=== PATIENT | male | born 1985 | race Caucasian/White ===

== ENCOUNTER → 2017-03-13 | Outpatient (CLI) | payer BC ==
[2017-03-13 09:53] LABS: CREATININE 1.5 mg/dL (0.7-1.3); GFR 54.6; MAGNESIUM 2.2 mg/dL (1.8-2.4); POTASSIUM 3.3 mmol/L (3.5-5.1)
[2017-03-13 10:15] LABS: BILIRUBIN,URINE NEG (NEG); CLARITY,URINE CLEAR; COLOR,URINE YELLOW; GLUCOSE,URINE NEG (NEG)
[2017-03-13 10:16] LABS: BACTERIA,URINE 0 /HPF (0-FEW); NITRITE,URINE NEG (NEG); RBC,URINE 0 /HPF (0-2); SQUAMOUS EPITHELIAL CELL,UR FEW /LPF; UROBILINOGEN,URINE 0.2 mg/dL (0.2 mg/dL); WBC,URINE 0 /HPF (0-4)
== END | disposition home or self-care (01) ==
LOC: LAB 09:05
PROVIDERS: ATTEND Internal Medicine Nephrology
DX: N17.8 Other acute kidney failure (principal); E26.81 Bartter's syndrome; E86.0 Dehydration; Z68.36 Body mass index [BMI] 36.0-36.9, adult
CPT/HCPCS: 36415; 80048; 81001; 83735

== ENCOUNTER → 2017-04-15 | Outpatient (CLI) | payer BC ==
--- NOTE | 2017-04-15 11:14 | RAD ---
Renal ultrasound 04/15/2017 Clinical history: Acute renal failure. History of Bartter syndrome. Technique: A real-time ultrasound examination of both kidneys and the urinary bladder was performed. Multiple images were obtained. Findings: Comparison is made to the patient's CT scan of the abdomen and pelvis dated 12/20/2012. Both kidneys are within normal limits in size. The right kidney measures 10.8 cm in length. The left kidney measures 12.1 cm in length. Thinning of the cortex of both kidneys is again seen. No focal abnormality of either kidney is noted. There is no evidence of hydronephrosis. The urinary bladder is distended with urine. No abnormality of the urinary bladder is seen. Impression: Thinning of the cortex of both kidneys is seen. Otherwise negative study.
== END | disposition home or self-care (01) ==
LOC: US 07:44
PROVIDERS: ATTEND Internal Medicine Nephrology
DX: N17.9 Acute kidney failure, unspecified (principal); E26.81 Bartter's syndrome
CPT/HCPCS: 76770

== ENCOUNTER → 2017-04-17 | Outpatient (CLI) | payer BC ==
[2017-04-17 10:57] LABS: CALCIUM 7.5 mg/dL (8.5-10.1); CREATININE 1.4 mg/dL (0.7-1.3); GFR 59.1; MAGNESIUM 2.1 mg/dL (1.8-2.4); POTASSIUM 3.4 mmol/L (3.5-5.1)
[2017-04-17 10:58] LABS: BACTERIA,URINE 0 /HPF (0-FEW); BILIRUBIN,URINE NEG (NEG); CLARITY,URINE CLEAR; COLOR,URINE STRAW; GLUCOSE,URINE NEG (NEG); NITRITE,URINE NEG (NEG); RBC,URINE RARE /HPF (0-2); SQUAMOUS EPITHELIAL CELL,UR OCC /LPF; UROBILINOGEN,URINE 0.2 mg/dL (0.2 mg/dL); WBC,URINE 0 /HPF (0-4)
== END | disposition home or self-care (01) ==
LOC: LAB 10:10
PROVIDERS: ATTEND Internal Medicine Nephrology
DX: E26.81 Bartter's syndrome (principal); N17.8 Other acute kidney failure; E86.0 Dehydration; Z68.36 Body mass index [BMI] 36.0-36.9, adult
CPT/HCPCS: 36415; 80048; 81001; 83735

== ENCOUNTER → 2017-05-14 | Outpatient (CLI) | payer BC | END | disposition home or self-care (01) | LOC: LAB 10:30 | PROVIDERS: ATTEND Nurse Practitioner Family | DX: N17.8 Other acute kidney failure (principal); E26.81 Bartter's syndrome; E87.6 Hypokalemia; E83.51 Hypocalcemia; Z68.35 Body mass index [BMI] 35.0-35.9, adult | CPT/HCPCS: 36415; 82306; 82310 ==

== ENCOUNTER → 2017-10-14 | Outpatient (CLI) | payer BC ==
[2017-10-14 11:31] LABS: BASO # 0.1 x10^3/uL (0.0-0.2); BASO % 2 % (0-3); EOS # 0.1 x10^3/uL (0.0-0.7); EOS % 2 % (0-3); HEMATOCRIT 51.1 % (39.0-53.0); HEMOGLOBIN 17.9 g/dL (13.0-17.5); LYMPH # 2.8 x10^3/uL (1.0-4.8); LYMPH % 42 % (24-48); MEAN CORPUSCULAR HEMOGLOBIN 31 pg (25-35); MEAN CORPUSCULAR HGB CONC 35 g/dL (31-37); MEAN CORPUSCULAR VOLUME 88 fL (79-100); MONO # 0.5 x10^3/uL (0.0-1.1); MONO % 8 % (0-9); NEUT # 3.1 x10^3uL (1.8-7.7); NEUT % 46 % (31-73); PLATELET COUNT 245 x10^3/uL (140-400); RED BLOOD COUNT 5.78 x10^6/uL (4.30-5.70); RED CELL DISTRIBUTION WIDTH 13.5 % (11.5-14.5); WHITE BLOOD COUNT 6.7 x10^3/uL (4.0-11.0)
[2017-10-14 11:37] LABS: CALCIUM 8.2 mg/dL (8.5-10.1); CREATININE 1.5 mg/dL (0.7-1.3); GFR 54.6; MAGNESIUM 2.2 mg/dL (1.8-2.4)
[2017-10-14 11:46] LABS: POTASSIUM 3.9 mmol/L (3.5-5.1)
[2017-10-16 12:08] LABS: CALCIUM PTH 8.5 mg/dL (8.7-10.2); CREATININE PTH 1.44 mg/dL (0.76-1.27); PTH INTACT 155 pg/mL (15-65)
== END | disposition home or self-care (01) ==
LOC: LAB 10:14
PROVIDERS: ATTEND Nurse Practitioner Family
DX: E26.81 Bartter's syndrome (principal); E87.6 Hypokalemia; N17.8 Other acute kidney failure; E83.51 Hypocalcemia; Z68.35 Body mass index [BMI] 35.0-35.9, adult
CPT/HCPCS: 36415; 80069; 83735; 83970; 85025

== ENCOUNTER 2017-12-10 17:09 | Emergency (ER) | payer BC ==
[~2017-12-10] VITALS: Ht 172.7 cm; Wt 111.1 kg
--- NOTE | 2017-12-10 17:18 | PHYS DOC ---
Adult General Chief Complaint Chief Complaint: hypertension HPI HPI Patient is a 32 year old M who presents with high blood pressure as well as multiple other symptoms. He states that he has had intermittent bilateral mid back pain that radiates around to the stomach. He feels that this pain is worse with exertion and improved with rest. He also feels that his pain is improved with a bowel movement. This back pain has been present over the past 6 months has been more frequent over the past month. He also feels that he has had increasing shortness of breath in particular with activity over the past month. He describes moderate shortness of breath with exertion that is improved with rest. He denies associated symptoms other than back pain. He does have underlying renal disease and was advised to come to the emergency room by Dr. Samson his healthcare representative. Review of Systems Review of Systems Constitutional: Denies fever or chills [] Eyes: Denies change in visual acuity, redness, or eye pain [] intermittent blurred vision HENT: Denies nasal congestion or sore throat [] Respiratory: Denies cough Cardiovascular: No additional information not addressed in HPI [] GI: Denies nausea, vomiting, bloody stools or diarrhea [] : Denies dysuria or hematuria [] Musculoskeletal: Denies joint pain [] Integument: Denies rash or skin lesions [] Neurologic: Denies headache, focal weakness or sensory changes [] intermittent dizziness Endocrine: Denies polyuria or polydipsia [] All other systems were reviewed and found to be within normal limits, except as documented in this note. Family History Family History No pertinent family medical history was reported Current Medications Current Medications Current medications were reviewed Allergies Allergies No known allergies Physical Exam Physical Exam Constitutional: Well developed, well nourished, no acute distress, non-toxic appearance. [] HENT: Normocephalic, atraumatic, Eyes: EOMI, conjunctiva normal, no discharge. [] Neck: Normal range of motion, no tenderness, supple, no stridor. [] Cardiovascular:Heart rate regular rhythm, Lungs & Thorax: Bilateral breath sounds clear to auscultation [] Abdomen: Bowel sounds normal, soft, no tenderness, no masses, no pulsatile masses. [] Lipomas in the abdomen Skin: Warm, dry, no erythema, no rash. [] Back: No tenderness, no CVA tenderness. [] Lipoma in the mid back Extremities: No tenderness, no cyanosis, no clubbing, ROM intact, no edema. [] Neurologic: Alert and oriented X 3, normal motor function, normal sensory function, no focal deficits noted. [] Psychologic: Affect normal, judgement normal, mood normal. [] EKG EKG EKG interpreted by me. EKG at 1800 showed normal sinus rhythm at rate of 76, no acute ST and T-wave abnormalities[] Radiology/Procedures Radiology/Procedures [] [address] [address] IMAGING REPORT Signed PATIENT: GUSTAVO JACKSON ACCOUNT: [id number] : 1985 LOCATION: ER AGE: 32 SEX: M EXAM STATUS: REG ER ORD. PHYSICIAN: YANCY GAVIRIA MD REASON: abdominal pain PROCEDURE: CT ABD PEL W/ORAL CONTRST ONLY CT abdomen and pelvis with oral contrast only 12/10/2017 Clinical indication: Bilateral flank pain. COMPARISON: CT abdomen and pelvis 12/10/2012 TECHNIQUE: Multiple CT images of the abdomen and pelvis were obtained without intravenous contrast. Oral contrast was administered. *One or more of the following individualized dose reduction techniques were utilized for this examination: 1. Automated exposure control. 2. Adjustment of the mA and/or kV according to patient size. 3. Use of iterative reconstruction technique. FINDINGS: Heart size is normal. Visualized lung bases are clear. Evaluation of the solid abdominal pelvic viscera, lymphadenopathy and vasculature is limited in the absence of intravenous contrast. Unenhanced contours of the liver, spleen, adrenal glands, and pancreas are grossly unremarkable. There are a few punctate 0.1 nonobstructive calculi in the left kidney best seen on the coronal images. No hydronephrosis. There is mild distal left hydroureter. Abdominal aorta is normal in caliber. There is malrotation of the bowel with all of the small bowel loops in the right hemiabdomen and the cecum in the left lower quadrant. No bowel obstruction. Appendix is not identified and may be absent. No retroperitoneal or mesenteric lymphadenopathy. Moderate distention of the urinary bladder. Prostate and seminal vesicles are unremarkable. No iliac or inguinal lymphadenopathy. No abdominal or pelvic free fluid. No pneumoperitoneum. There are no destructive osseous lesions. IMPRESSION: 1. A few punctate, 0.1 cm, left renal calculi. 2. There is moderate distention of the urinary bladder with resultant mild left hydroureter without lorenzo hydronephrosis. Consideration for decompression. 3. Uncomplicated intestinal malrotation. There is no volvulus, however findings may predispose to future obstruction or volvulus. Electronically signed by: Deborah Romero MD (12/10/2017 8:36 PM) [facility] [place] [facility] [place] DICTATED AND SIGNED BY: DEBORAH ROMERO MD DATE: 12/10/172027 CC: YANCY EASON MD; DIANA ULLOA MD; YANCY GAVIRIA MD ~ Course & Med Decision Making Course & Med Decision Making Pertinent Labs and Imaging studies reviewed. (See chart for details) Care was transferred to Dr. Ulloa at 1800 discharge: I've spoken with the patient and/or caregivers. I've explained the patient's condition, diagnosis and treatment plan based on information available to me at this time. I've answered the patient's and/or caregivers questions and addressed any concerns. The patient and/or caregivers have a good understanding the patient's diagnosis, condition and treatment plan as can be expected at this point. Vital signs have been stabilized. The patient's condition is stable for discharge from the emergency department. The patient will pursue further outpatient evaluation with her primary care provider or other designated consulting physician as outlined in the discharge instructions. Patient and/or caregivers are agreeable to this plan of care and follow-up instructions have been explained in detail. The patient and/or caregivers have received these instructions in written format and expressed understanding of these discharge instructions. The patient and her caregivers are aware that if any significant change in condition or worsening of symptoms should prompt him to immediately return to this of the closest emergency department. If an emergent department is not readily available I would encourage him to call 911. Nitish Disclaimer Dragon Disclaimer This electronic medical record was generated, in whole or in part, using a voice recognition dictation system. Departure Departure: Impression: Primary Impression: Renal insufficiency Additional Impressions: Hypokalemia Nephrolithiasis Hydronephrosis, left Intestinal malrotation Elevated blood pressure reading without diagnosis of hypertension Bilateral flank pain Disposition: HOME, SELF-CARE (At 2105) Condition: STABLE Referrals: YANCY EASON MD (PCP) Patient Instructions: Chronic Renal Insufficiency, Hypokalemia Additional Instructions: Record your blood pressure Increase potassium intake for 3 days Follow-up with your healthcare representative in 2-3 days Problem Qualifiers YANCY GAVIRIA MD Dec 10, 2017 17:18 DIANA ULLOA MD Dec 10, 2017 21:07
[2017-12-10] MEDS ORDERED: IV NORMAL SALINE 1,000ML 1,000 ML IV ONE (18:00)
--- NOTE | 2017-12-10 18:08 | EKG ---
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
[2017-12-10 18:19] LABS: BASO # 0.1 x10^3/uL (0.0-0.2); BASO % 1 % (0-3); EOS # 0.2 x10^3/uL (0.0-0.7); EOS % 2 % (0-3); LYMPH # 3.1 x10^3/uL (1.0-4.8); LYMPH % 34 % (24-48); MEAN CORPUSCULAR HEMOGLOBIN 31 pg (25-35); MEAN CORPUSCULAR VOLUME 88 fL (79-100); MONO # 0.6 x10^3/uL (0.0-1.1); MONO % 6 % (0-9); NEUT # 5.1 x10^3uL (1.8-7.7); NEUT % 56 % (31-73); PLATELET COUNT 256 x10^3/uL (140-400); RED BLOOD COUNT 5.83 x10^6/uL (4.30-5.70); RED CELL DISTRIBUTION WIDTH 13.8 % (11.5-14.5); WHITE BLOOD COUNT 9.1 x10^3/uL (4.0-11.0)
[2017-12-10] MEDS ORDERED: IOHEXOL 300 MG/ML 75 ML VIAL. IV ONE (18:30)
[2017-12-10 18:31] LABS: ALBUMIN 3.1 g/dL (3.4-5.0); ALBUMIN/GLOBULIN RATIO 0.9 (1.0-1.7); CALCIUM 8.1 mg/dL (8.5-10.1); CREATININE 1.7 mg/dL (0.7-1.3); GFR 47.2; MAGNESIUM 2.2 mg/dL (1.8-2.4); TOTAL BILIRUBIN 0.6 mg/dL (0.2-1.0); TOTAL PROTEIN 6.7 g/dL (6.4-8.2)
[2017-12-10] MEDS ORDERED: IOHEXOL 240 MG/ML 50ML VIAL. ONE (18:37)
[2017-12-10] MEDS ORDERED: IOHEXOL 240 MG/ML 50ML VIAL. PO ONE (19:15)
[2017-12-10 19:20] LABS: MEAN CORPUSCULAR HGB CONC 35 g/dL (31-37)
[2017-12-10 19:22] LABS: HEMATOCRIT 51.2 % (39.0-53.0)
[2017-12-10 19:54] LABS: BACTERIA,URINE 0 /HPF (0-FEW); BILIRUBIN,URINE NEG (NEG); CLARITY,URINE CLEAR; COLOR,URINE STRAW; GLUCOSE,URINE NEG (NEG); NITRITE,URINE NEG (NEG); RBC,URINE OCC /HPF (0-2); SQUAMOUS EPITHELIAL CELL,UR OCC /LPF; UROBILINOGEN,URINE 0.2 mg/dL (0.2 mg/dL); WBC,URINE OCC /HPF (0-4)
--- NOTE | 2017-12-10 20:39 | RAD ---
CT abdomen and pelvis with oral contrast only 12/10/2017 Clinical indication: Bilateral flank pain. COMPARISON: CT abdomen and pelvis 12/10/2012 TECHNIQUE: Multiple CT images of the abdomen and pelvis were obtained without intravenous contrast. Oral contrast was administered. *One or more of the following individualized dose reduction techniques were utilized for this examination: 1. Automated exposure control. 2. Adjustment of the mA and/or kV according to patient size. 3. Use of iterative reconstruction technique. FINDINGS: Heart size is normal. Visualized lung bases are clear. Evaluation of the solid abdominal pelvic viscera, lymphadenopathy and vasculature is limited in the absence of intravenous contrast. Unenhanced contours of the liver, spleen, adrenal glands, and pancreas are grossly unremarkable. There are a few punctate 0.1 nonobstructive calculi in the left kidney best seen on the coronal images. No hydronephrosis. There is mild distal left hydroureter. Abdominal aorta is normal in caliber. There is malrotation of the bowel with all of the small bowel loops in the right hemiabdomen and the cecum in the left lower quadrant. No bowel obstruction. Appendix is not identified and may be absent. No retroperitoneal or mesenteric lymphadenopathy. Moderate distention of the urinary bladder. Prostate and seminal vesicles are unremarkable. No iliac or inguinal lymphadenopathy. No abdominal or pelvic free fluid. No pneumoperitoneum. There are no destructive osseous lesions. IMPRESSION: 1. A few punctate, 0.1 cm, left renal calculi. 2. There is moderate distention of the urinary bladder with resultant mild left hydroureter without lorenzo hydronephrosis. Consideration for decompression. 3. Uncomplicated intestinal malrotation. There is no volvulus, however findings may predispose to future obstruction or volvulus. Electronically signed by: Ismael Romero MD (12/10/2017 8:36 PM) [facility] [place]
[2017-12-10] MEDS ORDERED: POTASSIUM CHLORIDE 20 MEQ TABLET.ER. PO ONE (21:15)
[2017-12-10 21:50] VITALS: BP 126/91
[2017-12-11 14:57] LABS: CHOLESTEROL 343 mg/dL (0-200); HDLC 42 mg/dL (40-60); TRIGLYCERIDES 638 mg/dL (0-150); VLDLC 127 mg/dL (0-40)
== END 2017-12-10 21:56 | disposition home or self-care (01) ==
LOC: ER 17:09
DX: N28.9 Disorder of kidney and ureter, unspecified (principal); E87.6 Hypokalemia; N13.2 Hydronephrosis with renal and ureteral calculous obstruction; Q43.3 Congenital malformations of intestinal fixation; R03.0 Elevated blood-pressure reading, without diagnosis of hypertension
CPT/HCPCS: 36415; 74176; 80053; 80061; 81001; 83735; 84443; 85025; 93005; 96360; 96361; 99285; Q9966; J7030

== ENCOUNTER → 2018-02-18 | Outpatient (CLI) | payer BC ==
[2018-02-18 11:00] LABS: ALBUMIN 3.2 g/dL (3.4-5.0); CALCIUM 7.9 mg/dL (8.5-10.1); CREATININE 1.5 mg/dL (0.7-1.3); GFR 54.6; MAGNESIUM 2.3 mg/dL (1.8-2.4); PHOSPHORUS 3.9 mg/dL (2.6-4.7); POTASSIUM 3.8 mmol/L (3.5-5.1)
[2018-02-18 11:01] LABS: BILIRUBIN,URINE NEG (NEG); CLARITY,URINE CLEAR; COLOR,URINE YELLOW; GLUCOSE,URINE NEG (NEG)
[2018-02-18 11:02] LABS: BACTERIA,URINE 0 /HPF (0-FEW); NITRITE,URINE NEG (NEG); RBC,URINE 0 /HPF (0-2); UROBILINOGEN,URINE 0.2 mg/dL (0.2 mg/dL); WBC,URINE RARE /HPF (0-4)
[2018-02-20 10:09] LABS: MICRO CREAT RATIO 3624.9 mg/g creat (0.0-30.0); MICROALB RD UR 1250.6 ug/mL (Not Estab.)
== END | disposition home or self-care (01) ==
LOC: LAB 10:15
PROVIDERS: ATTEND Internal Medicine
DX: E26.81 Bartter's syndrome (principal); N13.39 Other hydronephrosis; N17.8 Other acute kidney failure; E87.6 Hypokalemia; R80.0 Isolated proteinuria; R03.0 Elevated blood-pressure reading, without diagnosis of hypertension; R60.0 Localized edema; R33.9 Retention of urine, unspecified; R19.7 Diarrhea, unspecified; Z68.36 Body mass index [BMI] 36.0-36.9, adult
CPT/HCPCS: 36415; 80069; 81001; 82043; 82570; 83735

== ENCOUNTER → 2018-04-29 | Outpatient (CLI) | payer BC ==
[2018-04-29 09:30] LABS: HEMATOCRIT 48.2 % (39.0-53.0); HEMOGLOBIN 16.9 g/dL (13.0-17.5)
[2018-04-29 09:43] LABS: ALBUMIN 3.6 g/dL (3.4-5.0); CALCIUM 8.7 mg/dL (8.5-10.1); CREATININE 1.6 mg/dL (0.7-1.3); GFR 50.3; MAGNESIUM 2.3 mg/dL (1.8-2.4); PHOSPHORUS 3.2 mg/dL (2.6-4.7); POTASSIUM 3.6 mmol/L (3.5-5.1)
[2018-04-29 18:08] LABS: CALCIUM PTH 8.5 mg/dL (8.7-10.2); CREATININE PTH 1.53 mg/dL (0.76-1.27); PTH INTACT 140 pg/mL (15-65)
== END | disposition home or self-care (01) ==
LOC: LAB 08:01
PROVIDERS: ATTEND Internal Medicine Nephrology
DX: I12.9 Hypertensive chronic kidney disease with stage 1 through stage 4 chronic kidney disease, or unspecified chronic kidney disease (principal); N18.3 Chronic kidney disease, stage 3 (moderate); N14.0 Analgesic nephropathy; E78.4 Other hyperlipidemia; E87.6 Hypokalemia; E83.51 Hypocalcemia; E26.81 Bartter's syndrome; R80.1 Persistent proteinuria, unspecified; Z68.34 Body mass index [BMI] 34.0-34.9, adult
CPT/HCPCS: 36415; 80069; 82306; 82570; 83735; 83970; 84156; 85014; 85018

== ENCOUNTER → 2018-07-13 | Outpatient (CLI) | payer BC ==
[2018-07-15 14:09] LABS: ANTI-DS DNA <1 IU/mL (0-9)
[2018-07-15 19:13] LABS: ANA INTERP Negative (.)
== END | disposition home or self-care (01) ==
LOC: LAB 10:36
PROVIDERS: ATTEND Internal Medicine Nephrology
DX: I12.9 Hypertensive chronic kidney disease with stage 1 through stage 4 chronic kidney disease, or unspecified chronic kidney disease (principal); N18.2 Chronic kidney disease, stage 2 (mild); E26.81 Bartter's syndrome; N14.0 Analgesic nephropathy; E21.1 Secondary hyperparathyroidism, not elsewhere classified; N13.732 Vesicoureteral-reflux with reflux nephropathy with hydroureter, bilateral; R60.0 Localized edema; Z68.36 Body mass index [BMI] 36.0-36.9, adult
CPT/HCPCS: 36415; 86038; 86703; 86705; 86709; 86803; 87340; 87801

== ENCOUNTER → 2018-08-13 | Outpatient (CLI) | payer BC | END | disposition home or self-care (01) | LOC: LAB 07:59 | PROVIDERS: ATTEND Specialist | DX: E78.00 Pure hypercholesterolemia, unspecified (principal) | CPT/HCPCS: 80061 ==

== ENCOUNTER → 2018-10-06 | Outpatient (CLI) | payer BC ==
[2018-10-06 11:36] LABS: HEMATOCRIT 52.5 % (39.0-53.0); HEMOGLOBIN 17.7 g/dL (13.0-17.5)
[2018-10-06 11:41] LABS: ALBUMIN 3.5 g/dL (3.4-5.0); CALCIUM 8.7 mg/dL (8.5-10.1); CREATININE 1.5 mg/dL (0.7-1.3); GFR 54.2; PHOSPHORUS 2.8 mg/dL (2.6-4.7); POTASSIUM 3.7 mmol/L (3.5-5.1)
[2018-10-07 09:12] LABS: CREATININE PTH 1.52 mg/dL (0.76-1.27); PTH INTACT 205 pg/mL (15-65)
== END | disposition home or self-care (01) ==
LOC: LAB 10:29
PROVIDERS: ATTEND Internal Medicine Nephrology
DX: I12.9 Hypertensive chronic kidney disease with stage 1 through stage 4 chronic kidney disease, or unspecified chronic kidney disease (principal); N18.2 Chronic kidney disease, stage 2 (mild); N14.0 Analgesic nephropathy; E26.81 Bartter's syndrome; N13.739 Vesicoureteral-reflux with reflux nephropathy with hydroureter, unspecified; E21.1 Secondary hyperparathyroidism, not elsewhere classified; R60.0 Localized edema; Z68.36 Body mass index [BMI] 36.0-36.9, adult
CPT/HCPCS: 36415; 80069; 82306; 82570; 83970; 84156; 85014; 85018

== ENCOUNTER → 2018-11-11 | Outpatient (CLI) | payer BC | END | disposition home or self-care (01) | LOC: LAB 10:38 | PROVIDERS: ATTEND Specialist | DX: E78.00 Pure hypercholesterolemia, unspecified (principal) | CPT/HCPCS: 80061 ==

== ENCOUNTER → 2019-02-03 | Outpatient (CLI) | payer BC ==
[2019-02-03 12:02] LABS: HEMATOCRIT 48.1 % (39.0-53.0); HEMOGLOBIN 16.3 g/dL (13.0-17.5)
[2019-02-03 12:13] LABS: CALCIUM 8.6 mg/dL (8.5-10.1); CREATININE 1.6 mg/dL (0.7-1.3); GFR 50.3; POTASSIUM 3.5 mmol/L (3.5-5.1)
[2019-02-04 00:11] LABS: CALCIUM PTH 8.2 mg/dL (8.7-10.2); CREATININE PTH 1.44 mg/dL (0.76-1.27); PTH INTACT 209 pg/mL (15-65)
== END | disposition home or self-care (01) ==
LOC: LAB 11:24
PROVIDERS: ATTEND Internal Medicine Nephrology
DX: I12.9 Hypertensive chronic kidney disease with stage 1 through stage 4 chronic kidney disease, or unspecified chronic kidney disease (principal); N18.3 Chronic kidney disease, stage 3 (moderate); E21.1 Secondary hyperparathyroidism, not elsewhere classified; E26.81 Bartter's syndrome; N13.739 Vesicoureteral-reflux with reflux nephropathy with hydroureter, unspecified; N14.0 Analgesic nephropathy; Z68.36 Body mass index [BMI] 36.0-36.9, adult
CPT/HCPCS: 36415; 80069; 82306; 82570; 83970; 84156; 85014; 85018

== ENCOUNTER → 2019-04-26 | Outpatient (CLI) | payer BC ==
[2019-04-26 10:22] LABS: ALBUMIN 3.3 g/dL (3.4-5.0); CALCIUM 8.8 mg/dL (8.5-10.1); CREATININE 1.9 mg/dL (0.7-1.3); PHOSPHORUS 3.3 mg/dL (2.6-4.7); POTASSIUM 3.9 mmol/L (3.5-5.1)
== END | disposition home or self-care (01) ==
LOC: LAB 09:33
PROVIDERS: ATTEND Internal Medicine
DX: I12.9 Hypertensive chronic kidney disease with stage 1 through stage 4 chronic kidney disease, or unspecified chronic kidney disease (principal); N18.3 Chronic kidney disease, stage 3 (moderate); N14.0 Analgesic nephropathy; R60.0 Localized edema; R80.1 Persistent proteinuria, unspecified; E26.81 Bartter's syndrome; E21.1 Secondary hyperparathyroidism, not elsewhere classified; Z68.37 Body mass index [BMI] 37.0-37.9, adult
CPT/HCPCS: 36415; 80069

== ENCOUNTER → 2019-05-12 | Outpatient (CLI) | payer BC ==
[2019-05-12 10:05] LABS: ALBUMIN 3.2 g/dL (3.4-5.0); ALBUMIN/GLOBULIN RATIO 0.9 (1.0-1.7); CALCIUM 8.1 mg/dL (8.5-10.1); CREATININE 2.2 mg/dL (0.7-1.3); GFR 34.6; POTASSIUM 3.3 mmol/L (3.5-5.1); TOTAL BILIRUBIN 0.7 mg/dL (0.2-1.0); TOTAL PROTEIN 6.8 g/dL (6.4-8.2)
== END | disposition home or self-care (01) ==
LOC: LAB 08:10
PROVIDERS: ATTEND Internal Medicine Cardiovascular Disease
DX: E78.00 Pure hypercholesterolemia, unspecified (principal)
CPT/HCPCS: 36415; 80053

== ENCOUNTER → 2019-06-14 | Outpatient (CLI) | payer BC ==
[2019-06-14 13:51] LABS: HEMATOCRIT 48.2 % (39.0-53.0); HEMOGLOBIN 16.5 g/dL (13.0-17.5)
[2019-06-14 14:02] LABS: ALBUMIN 3.2 g/dL (3.4-5.0); CALCIUM 8.7 mg/dL (8.5-10.1); CREATININE 1.8 mg/dL (0.7-1.3); GFR 43.7; MAGNESIUM 2.3 mg/dL (1.8-2.4); PHOSPHORUS 3.1 mg/dL (2.6-4.7); POTASSIUM 3.9 mmol/L (3.5-5.1)
[2019-06-14 14:24] LABS: BACTERIA,URINE 0 /HPF (0-FEW); BILIRUBIN,URINE NEG (NEG); CLARITY,URINE CLEAR; COLOR,URINE STRAW; GLUCOSE,URINE NEG (NEG); HYALINE CASTS, URINE OCC /HPF; NITRITE,URINE NEG (NEG); SQUAMOUS EPITHELIAL CELL,UR OCC /LPF; UROBILINOGEN,URINE 0.2 mg/dL (0.2 mg/dL); WBC,URINE OCC /HPF (0-4)
[2019-06-15 11:13] LABS: CALCIUM PTH 9.1 mg/dL (8.7-10.2); CREATININE PTH 1.65 mg/dL (0.76-1.27); PTH INTACT 136 pg/mL (15-65)
[2019-06-15 14:00] LABS: CREATININE,RANDOM URINE 36.6 mg/dL (Not Establ.)
== END | disposition home or self-care (01) ==
LOC: LAB 12:37
PROVIDERS: ATTEND Internal Medicine
DX: E26.81 Bartter's syndrome (principal); I12.9 Hypertensive chronic kidney disease with stage 1 through stage 4 chronic kidney disease, or unspecified chronic kidney disease; N18.3 Chronic kidney disease, stage 3 (moderate); T39.91XA Poisoning by unspecified nonopioid analgesic, antipyretic and antirheumatic, accidental (unintentional), initial encounter; N14.0 Analgesic nephropathy; R60.0 Localized edema; N13.739 Vesicoureteral-reflux with reflux nephropathy with hydroureter, unspecified; R80.1 Persistent proteinuria, unspecified; E21.1 Secondary hyperparathyroidism, not elsewhere classified; Z68.37 Body mass index [BMI] 37.0-37.9, adult; Y92.89 Other specified places as the place of occurrence of the external cause
CPT/HCPCS: 36415; 80069; 81001; 82306; 82570; 83735; 83970; 84156; 84550; 85014; 85018

== ENCOUNTER → 2019-10-28 | Outpatient (CLI) | payer BC ==
[2019-10-28 13:05] LABS: HEMATOCRIT 48.3 % (39.0-53.0); HEMOGLOBIN 16.2 g/dL (13.0-17.5)
[2019-10-28 13:18] LABS: ALBUMIN 3.2 g/dL (3.4-5.0); BILIRUBIN,URINE NEG (NEG); CLARITY,URINE CLEAR; COLOR,URINE STRAW; CREATININE 1.9 mg/dL (0.7-1.3); GLUCOSE,URINE NEG (NEG); MAGNESIUM 2.1 mg/dL (1.8-2.4); PHOSPHORUS 2.7 mg/dL (2.6-4.7); POTASSIUM 3.6 mmol/L (3.5-5.1); URIC ACID 8.4 mg/dL (3.5-7.2)
[2019-10-28 13:19] LABS: BACTERIA,URINE 0 /HPF (0-FEW); NITRITE,URINE NEG (NEG); RBC,URINE OCC /HPF (0-2); SQUAMOUS EPITHELIAL CELL,UR FEW /LPF; UROBILINOGEN,URINE 0.2 mg/dL (0.2 mg/dL); WBC,URINE OCC /HPF (0-4)
[2019-10-29 02:07] LABS: CALCIUM PTH 8.7 mg/dL (8.7-10.2); CREATININE PTH 1.87 mg/dL (0.76-1.27); PTH INTACT 362 pg/mL (15-65)
== END | disposition home or self-care (01) ==
LOC: LAB 12:38
PROVIDERS: ATTEND Internal Medicine
DX: I12.9 Hypertensive chronic kidney disease with stage 1 through stage 4 chronic kidney disease, or unspecified chronic kidney disease (principal); N18.3 Chronic kidney disease, stage 3 (moderate); N14.0 Analgesic nephropathy; R80.1 Persistent proteinuria, unspecified; R60.0 Localized edema; E26.81 Bartter's syndrome; N13.739 Vesicoureteral-reflux with reflux nephropathy with hydroureter, unspecified; E21.1 Secondary hyperparathyroidism, not elsewhere classified; Z68.37 Body mass index [BMI] 37.0-37.9, adult
CPT/HCPCS: 36415; 80069; 81001; 82570; 83735; 83970; 84156; 84550; 85014; 85018

== ENCOUNTER → 2020-01-05 | Outpatient (CLI) | payer BC ==
[2020-01-05 10:15] LABS: MAGNESIUM 2.4 mg/dL (1.8-2.4); POTASSIUM 4.3 mmol/L (3.5-5.1)
== END ==
LOC: LAB 09:00
PROVIDERS: ATTEND Internal Medicine Nephrology
DX: N14.0 Analgesic nephropathy (principal); I12.9 Hypertensive chronic kidney disease with stage 1 through stage 4 chronic kidney disease, or unspecified chronic kidney disease; N18.3 Chronic kidney disease, stage 3 (moderate); R80.1 Persistent proteinuria, unspecified; R60.0 Localized edema; E26.81 Bartter's syndrome; N13.739 Vesicoureteral-reflux with reflux nephropathy with hydroureter, unspecified; E21.1 Secondary hyperparathyroidism, not elsewhere classified; Z68.39 Body mass index [BMI] 39.0-39.9, adult
CPT/HCPCS: 36415; 83735; 84132

== ENCOUNTER → 2020-04-06 | Outpatient (CLI) | payer BC ==
[2020-04-06 11:04] LABS: HEMATOCRIT 46.9 % (39.0-53.0); HEMOGLOBIN 15.9 g/dL (13.0-17.5)
[2020-04-06 11:19] LABS: ALBUMIN 3.4 g/dL (3.4-5.0); CALCIUM 8.6 mg/dL (8.5-10.1); CREATININE 2.2 mg/dL (0.7-1.3); GFR 34.4; PHOSPHORUS 3.3 mg/dL (2.6-4.7); POTASSIUM 3.7 mmol/L (3.5-5.1)
[2020-04-06 15:26] LABS: CREATININE,RANDOM URINE 41.1 mg/dL (Not Establ.)
[2020-04-07 02:07] LABS: CALCIUM PTH 9.1 mg/dL (8.7-10.2); CREATININE PTH 1.92 mg/dL (0.76-1.27); PTH INTACT 208 pg/mL (15-65)
== END | disposition home or self-care (01) ==
LOC: LAB 09:11
PROVIDERS: ATTEND Internal Medicine Nephrology
DX: I12.9 Hypertensive chronic kidney disease with stage 1 through stage 4 chronic kidney disease, or unspecified chronic kidney disease (principal); N18.3 Chronic kidney disease, stage 3 (moderate); N14.0 Analgesic nephropathy; R60.0 Localized edema; R80.1 Persistent proteinuria, unspecified; E26.81 Bartter's syndrome; N13.739 Vesicoureteral-reflux with reflux nephropathy with hydroureter, unspecified; E21.1 Secondary hyperparathyroidism, not elsewhere classified; Z68.39 Body mass index [BMI] 39.0-39.9, adult
CPT/HCPCS: 36415; 80061; 80069; 82306; 82570; 83970; 84156; 85014; 85018

== ENCOUNTER → 2020-10-16 | Outpatient (CLI) | payer BC ==
[2020-10-16 11:30] LABS: HEMATOCRIT 45.9 % (39.0-53.0); HEMOGLOBIN 15.5 g/dL (13.0-17.5)
[2020-10-16 11:35] LABS: ALBUMIN 3.1 g/dL (3.4-5.0); CALCIUM 7.9 mg/dL (8.5-10.1); CREATININE 2.4 mg/dL (0.7-1.3); GFR 31.1; MAGNESIUM 2.1 mg/dL (1.8-2.4); PHOSPHORUS 2.3 mg/dL (2.6-4.7); POTASSIUM 3.3 mmol/L (3.5-5.1); URIC ACID 8.9 mg/dL (3.5-7.2)
[2020-10-16 12:47] LABS: BILIRUBIN,URINE NEG (NEG); CLARITY,URINE CLEAR; COLOR,URINE STRAW; GLUCOSE,URINE NEG (NEG)
[2020-10-16 12:48] LABS: BACTERIA,URINE 0 /HPF (0-FEW); NITRITE,URINE NEG (NEG); RBC,URINE OCC /HPF (0-2); SQUAMOUS EPITHELIAL CELL,UR FEW /LPF; UROBILINOGEN,URINE 0.2 mg/dL (0.2 mg/dL); WBC,URINE OCC /HPF (0-4)
[2020-10-16 13:37] LABS: CREATININE,RANDOM URINE 28.4 mg/dL (Not Establ.)
[2020-10-17 11:24] LABS: CALCIUM PTH 8.7 mg/dL (8.7-10.2); PTH INTACT 214 pg/mL (15-65)
== END ==
LOC: LAB 10:19
PROVIDERS: ATTEND Nurse Practitioner Family
DX: E26.81 Bartter's syndrome (principal); N14.0 Analgesic nephropathy; I12.9 Hypertensive chronic kidney disease with stage 1 through stage 4 chronic kidney disease, or unspecified chronic kidney disease; N18.30 Chronic kidney disease, stage 3 unspecified; R80.1 Persistent proteinuria, unspecified; E78.5 Hyperlipidemia, unspecified; R60.0 Localized edema; N13.739 Vesicoureteral-reflux with reflux nephropathy with hydroureter, unspecified; E21.1 Secondary hyperparathyroidism, not elsewhere classified; Z68.38 Body mass index [BMI] 38.0-38.9, adult
CPT/HCPCS: 36415; 80061; 80069; 81001; 82306; 82570; 83735; 83970; 84156; 84550; 85014; 85018

== ENCOUNTER → 2021-04-17 | Outpatient (CLI) | payer BC ==
[2021-04-17 11:17] LABS: HEMATOCRIT 43.4 % (39.0-53.0); HEMOGLOBIN 14.8 g/dL (13.0-17.5)
[2021-04-17 11:29] LABS: ALBUMIN 3.8 g/dL (3.4-5.0); CALCIUM 8.7 mg/dL (8.5-10.1); CREATININE 2.2 mg/dL (0.7-1.3); GFR 34.2; MAGNESIUM 2.4 mg/dL (1.8-2.4); PHOSPHORUS 3.5 mg/dL (2.6-4.7); POTASSIUM 3.7 mmol/L (3.5-5.1)
[2021-04-17 12:11] LABS: AMORPHOUS SEDIMENT,UR PRESENT /HPF; BACTERIA,URINE 0 /HPF (0-FEW); BILIRUBIN,URINE NEG (NEG); CLARITY,URINE CLEAR; COLOR,URINE YELLOW; GLUCOSE,URINE NEG (NEG); NITRITE,URINE NEG (NEG); RBC,URINE OCC /HPF (0-2); SQUAMOUS EPITHELIAL CELL,UR FEW /LPF; UROBILINOGEN,URINE 0.2 mg/dL (0.2 mg/dL); WBC,URINE OCC /HPF (0-4)
[2021-04-17 14:10] LABS: CREATININE,RANDOM URINE 42.1 mg/dL (Not Establ.)
[2021-04-17 23:08] LABS: CREATININE PTH 2.12 mg/dL (0.76-1.27); PTH INTACT 178 pg/mL (15-65)
== END ==
LOC: LAB 10:26
PROVIDERS: ATTEND Internal Medicine Nephrology
DX: I12.9 Hypertensive chronic kidney disease with stage 1 through stage 4 chronic kidney disease, or unspecified chronic kidney disease (principal); N18.32 Chronic kidney disease, stage 3b; N14.0 Analgesic nephropathy; R80.1 Persistent proteinuria, unspecified; E78.5 Hyperlipidemia, unspecified; R60.0 Localized edema; E26.81 Bartter's syndrome; N13.739 Vesicoureteral-reflux with reflux nephropathy with hydroureter, unspecified; E21.1 Secondary hyperparathyroidism, not elsewhere classified
CPT/HCPCS: 36415; 80069; 81001; 82306; 82570; 83735; 83970; 84156; 85014; 85018

== ENCOUNTER → 2021-06-18 | Outpatient (CLI) | payer SELFPAY ==
--- NOTE | 2021-06-18 13:48 | RAD ---
EXAM: 3 Views Right Shoulder DATE: 06/18/2021 1:35 PM INDICATION: Reason: RIGHT SHOULDER PAIN / Spl. Instructions: / History: COMPARISON: No Prior FINDINGS: There is no evidence for acute fracture or dislocation. AC joint is congruent. Humeral head is not hi gh riding. IMPRESSION: 1. No acute fracture or dislocation. Electronically signed by: Denver Anderson MD (06/18/2021 1:46 PM) [id number]
== END ==
LOC: RAD 13:17
PROVIDERS: ATTEND Nurse Practitioner Family
DX: M25.511 Pain in right shoulder (principal)
CPT/HCPCS: 73030

== ENCOUNTER → 2021-12-25 | Outpatient (CLI) | payer BC ==
[2021-12-25 12:49] LABS: HEMATOCRIT 46.4 % (39.0-53.0); HEMOGLOBIN 15.8 g/dL (13.0-17.5)
[2021-12-25 12:55] LABS: ALBUMIN 3.4 g/dL (3.4-5.0); CALCIUM 8.7 mg/dL (8.5-10.1); CREATININE 2.9 mg/dL (0.7-1.3); GFR 24.9; PHOSPHORUS 3.3 mg/dL (2.6-4.7); POTASSIUM 4.5 mmol/L (3.5-5.1)
[2021-12-25 13:27] LABS: CLARITY,URINE CLEAR; COLOR,URINE YELLOW; GLUCOSE,URINE NEG (NEG)
[2021-12-25 13:28] LABS: BACTERIA,URINE 0 /HPF (0-FEW); NITRITE,URINE NEG (NEG); SQUAMOUS EPITHELIAL CELL,UR FEW /LPF; UROBILINOGEN,URINE 0.2 mg/dL (0.2 mg/dL)
[2021-12-26 14:08] LABS: CALCIUM PTH 9.4 mg/dL (8.7-10.2); CREATININE PTH 2.73 mg/dL (0.76-1.27); PTH INTACT 158 pg/mL (15-65)
[2021-12-26 19:57] LABS: CREATININE,RANDOM URINE 29.4 mg/dL (Not Establ.)
== END ==
LOC: LAB 11:37
PROVIDERS: ATTEND Nurse Practitioner Family
DX: I12.9 Hypertensive chronic kidney disease with stage 1 through stage 4 chronic kidney disease, or unspecified chronic kidney disease (principal); N18.32 Chronic kidney disease, stage 3b; N14.0 Analgesic nephropathy; N13.739 Vesicoureteral-reflux with reflux nephropathy with hydroureter, unspecified; R80.1 Persistent proteinuria, unspecified; E21.1 Secondary hyperparathyroidism, not elsewhere classified; R60.0 Localized edema; E78.5 Hyperlipidemia, unspecified; E26.81 Bartter's syndrome; Z68.38 Body mass index [BMI] 38.0-38.9, adult
CPT/HCPCS: 36415; 80069; 81001; 82306; 82570; 83970; 84156; 85014; 85018; 87086

== ENCOUNTER → 2022-01-03 | Outpatient (CLI) | payer BC ==
--- NOTE | 2022-01-03 09:17 | RAD ---
Exam Date: 01/03/2022 9:07 AM XR HAND_RIGHT 3 VIEWS Indication: Pain. Reason: INJURY HAND/3RD METACARPAL MAKING AN ARREST / Spl. Instructions: / Histor y: . FINDINGS/ IMPRESSION: No acute fracture or dislocation. Alignment and joint spaces are maintained. The soft tissues are w ithin normal limits. Electronically signed by: Willie Mittal MD (01/03/2022 9:14 AM) [id number]
== END ==
LOC: RAD 08:42
PROVIDERS: ATTEND Nurse Practitioner Family
DX: S69.91XA Unspecified injury of right wrist, hand and finger(s), initial encounter (principal); X58.XXXA Exposure to other specified factors, initial encounter; Y93.89 Activity, other specified; Y92.89 Other specified places as the place of occurrence of the external cause; Y99.8 Other external cause status
CPT/HCPCS: 73130

== ENCOUNTER → 2022-01-04 | Outpatient (CLI) | payer BC ==
[2022-01-04 09:56] LABS: ALBUMIN 3.3 g/dL (3.4-5.0); CREATININE 2.7 mg/dL (0.7-1.3); PHOSPHORUS 3.5 mg/dL (2.6-4.7); POTASSIUM 3.9 mmol/L (3.5-5.1)
== END ==
LOC: LAB 07:57
PROVIDERS: ATTEND Nurse Practitioner Family
DX: I12.9 Hypertensive chronic kidney disease with stage 1 through stage 4 chronic kidney disease, or unspecified chronic kidney disease (principal); N18.32 Chronic kidney disease, stage 3b; N14.0 Analgesic nephropathy; N04.1 Nephrotic syndrome with focal and segmental glomerular lesions; N13.739 Vesicoureteral-reflux with reflux nephropathy with hydroureter, unspecified; R80.1 Persistent proteinuria, unspecified; E21.1 Secondary hyperparathyroidism, not elsewhere classified; R60.0 Localized edema; E78.5 Hyperlipidemia, unspecified; E26.81 Bartter's syndrome; Z68.41 Body mass index [BMI] 40.0-44.9, adult
CPT/HCPCS: 36415; 80069